=== PATIENT | male | born 1955 | race Caucasian/White ===

== ENCOUNTER → 2021-12-25 | Outpatient (CLI) | payer MEDICARE | LOC: CARD 09:39 | PROVIDERS: ATTEND Family Medicine | DX: L89.612 Pressure ulcer of right heel, stage 2 (principal); I73.9 Peripheral vascular disease, unspecified; R60.9 Edema, unspecified | CPT/HCPCS: 93922; 93925; 93970 ==

== ENCOUNTER → 2022-01-07 | Outpatient (CLI) | payer MEDICARE ==
[2022-01-07 13:36] LABS: CREATININE, SERUM 0.93 mg/dL (0.72-1.25)
== END ==
LOC: CT 12:16
PROVIDERS: ATTEND Family Medicine
DX: I87.2 Venous insufficiency (chronic) (peripheral) (principal)
CPT/HCPCS: 36415; 75635; 82565; 84520

== ENCOUNTER 2022-01-09 08:25 | Outpatient (RCR) | payer MEDICARE ==
[~2022-01-09 08:25] MED LIST: COLLAGENASE OINTMENT 30 GM TUBE ONE; LIDOCAINE VISC 2% SOLN 15 ML UDC ONE; MUPIROCIN 2% OINT 22 GM TUBE ONE
== END 2022-01-29 ==
LOC: WCC 08:25
PROVIDERS: ATTEND Family Medicine
DX: L89.612 Pressure ulcer of right heel, stage 2 (principal); L89.156 Pressure-induced deep tissue damage of sacral region; L89.616 Pressure-induced deep tissue damage of right heel; E11.628 Type 2 diabetes mellitus with other skin complications; S81.801A Unspecified open wound, right lower leg, initial encounter; S91.201A Unspecified open wound of right great toe with damage to nail, initial encounter; I87.2 Venous insufficiency (chronic) (peripheral); R60.9 Edema, unspecified; I73.89 Other specified peripheral vascular diseases; I10 Essential (primary) hypertension; G20 Parkinson's disease; G99.0 Autonomic neuropathy in diseases classified elsewhere; B95.4 Other streptococcus as the cause of diseases classified elsewhere; E66.3 Overweight; R26.89 Other abnormalities of gait and mobility; W22.8XXA Striking against or struck by other objects, initial encounter; X58.XXXA Exposure to other specified factors, initial encounter
CPT/HCPCS: 96372

== ENCOUNTER 2022-04-15 17:42 | Emergency (ER) | payer MEDICARE ==
[~2022-04-15] VITALS: Ht 190.5 cm; Wt 127.0 kg
[2022-04-15] MEDS ORDERED: FLUCONAZOLE100 MG PO (18:12)
[2022-04-15] MEDS ORDERED: DOXYCYCLINE HY100 M3 PO (18:12)
[2022-04-15] MEDS ORDERED: AMOXICILLIN500 MG PO (18:12)
== END 2022-04-15 19:00 | disposition home or self-care (01) ==
LOC: ER 17:48
DX: E11.51 Type 2 diabetes mellitus with diabetic peripheral angiopathy without gangrene (principal); E11.621 Type 2 diabetes mellitus with foot ulcer; L97.519 Non-pressure chronic ulcer of other part of right foot with unspecified severity; Z95.820 Peripheral vascular angioplasty status with implants and grafts; L97.419 Non-pressure chronic ulcer of right heel and midfoot with unspecified severity
CPT/HCPCS: 99283